=== PATIENT | male | born 1990 | race American Indian/Alaskan Native ===

== ENCOUNTER 2018-08-12 16:16 | Emergency (ER) | payer OTHER ==
--- NOTE | 2018-08-12 16:56 | Emergency Department Report ---
Blank Doc - Documentation Documentation: This is a 27-year-old male that presents with URI symptoms and sore throat. This initial assessment/diagnostic orders/clinical plan/treatment(s) is/are subject to change based on patient's health status, clinical progression and re- assessment by fellow clinical providers in the ED. Further treatment and workup at subsequent clinical providers discretion. Patient/guardians urged not to elope from the ED as their condition may be serious if not clinically assessed and managed. Initial orders include: 1- Patient sent to [facility] for further evaluation and treatment 2- CXR
[2018-08-12 16:58] VITALS: BP 133/86
--- NOTE | 2018-08-12 18:08 | XRay Report ---
PROCEDURE: XR CHEST ROUTINE 2V TECHNIQUE: PA and lateral chest radiographs were obtained. HISTORY: cough COMPARISONS: None. FINDINGS: Heart: Normal. Mediastinum/Vessels: Normal. Lungs/Pleural space: No infiltrate, effusion, or pneumothorax. Bony thorax: No acute osseous abnormality. IMPRESSION: No radiographic evidence of acute abnormality. This document is electronically signed by Beverly Zuniga MD., Aug 12 2018 06:06:13 PM ET
[2018-08-12] MEDS ORDERED: DELTASONE PO ONE (19:53)
[2018-08-12] MEDS ORDERED: LIDOCAINE VISCOUS 2% PO ONE (19:54)
[2018-08-12] MEDS ORDERED: TYLENOL PO ONE (19:54)
--- NOTE | 2018-08-12 20:35 | Emergency Department Report ---
- General Chief Complaint: Sore Throat Stated Complaint: SOAR THROAT/COUGH/MUCUS/PAIN Time Seen by Provider: 08/12/18 16:55 Source: patient Mode of arrival: Ambulatory Limitations: No Limitations - History of Present Illness Initial Comments: Patient is a 27-year-old [place] male with no past medical history presents to the ED with c/o acute onset persistent severe nasal and sinus congestion, frontal sinus pressure and headache, dry cough, pleuritic chest wall pain, severe sore throat with dysphagia, and diffuse body aches and pains with chills for the last 3 days. Patient states that in the last 12 hours his symptoms have worsened. Patient denies fever, nausea, vomiting, diarrhea, abdominal pain, chest pain, shortness of breath, dizziness or change in vision. MD Complaint: cough, sore throat, rhinorrhea, nasal congestion, sinus pain -: Sudden, days(s) (3) Severity: severe Severity scale (0 -10): 7 Quality: sharp Consistency: constant Improves With: nothing Worsens With: nothing Associated Symptoms: chills, myalgias, headache, rhinorrhea, nasal congestion, sore throat, cough. denies: nausea, vomiting, diarrhea, rash, confusion, epistaxis, hoarseness Treatments Prior to Arrival: "cold medicine" - Related Data Previous Rx's Medication Instructions Recorded Last Taken Type Ibuprofen [Motrin] 800 mg PO Q8HR PRN #20 tablet 08/12/18 Unknown Rx Lidocaine Viscous 2% 10 ml PO Q6H PRN #120 udc 08/12/18 Unknown Rx Ondansetron [Zofran Odt] 4 mg PO Q6H #15 tab.rapdis 08/12/18 Unknown Rx Penicillin V Potassium 500 mg PO Q6H #40 tablet 08/12/18 Unknown Rx methylPREDNISolone [Medrol] 4 mg PO DAILY #21 tab.ds.pk 08/12/18 Unknown Rx Allergies Allergy/AdvReac Type Severity Reaction Status Date / Time No Known Allergies Allergy Unverified 08/12/18 16:18 ED Review of Systems ROS: Stated complaint: SOAR THROAT/COUGH/MUCUS/PAIN Other details as noted in HPI Comment: All other systems reviewed and negative Constitutional: no symptoms reported, see HPI, chills, malaise. denies: diaphoresis, fever, weakness Eyes: as per HPI. denies: eye pain, eye discharge, vision change ENT: as per HPI, throat pain, congestion. denies: ear pain, dental pain, hearing loss, epistaxis Respiratory: no symptoms reported, see HPI, cough. denies: shortness of breath, SOB with exertion, wheezing Cardiovascular: as per HPI. denies: chest pain, palpitations, dyspnea on exertion, syncope Endocrine: no symptoms reported, see HPI. denies: excessive sweating, flushing, increased thirst, increased urine Gastrointestinal: as per HPI. denies: abdominal pain, nausea, vomiting, diarrhea, hematochezia Genitourinary: as per HPI. denies: urgency, dysuria, hematuria, testicular pain, testicular mass Musculoskeletal: as per HPI, arthralgia, myalgia. denies: back pain Skin: as per HPI. denies: rash, lesions, change in hair/nails Neurological: as per HPI, headache. denies: weakness, numbness, paresthesias, abnormal gait Psychiatric: as per HPI Hematological/Lymphatic: as per HPI ED Past Medical Hx - Past Medical History Previous Medical History?: No - Surgical History Past Surgical History?: No - Social History Smoking Status: Current Every Day Smoker Substance Use Type: None - Medications Home Medications: Home Medications Medication Instructions Recorded Confirmed Last Taken Type Ibuprofen [Motrin] 800 mg PO Q8HR PRN #20 tablet 08/12/18 Unknown Rx Lidocaine Viscous 2% 10 ml PO Q6H PRN #120 udc 08/12/18 Unknown Rx Ondansetron [Zofran Odt] 4 mg PO Q6H #15 tab.rapdis 08/12/18 Unknown Rx Penicillin V Potassium 500 mg PO Q6H #40 tablet 08/12/18 Unknown Rx methylPREDNISolone [Medrol] 4 mg PO DAILY #21 tab.ds.pk 08/12/18 Unknown Rx ED Physical Exam - General Limitations: No Limitations General appearance: alert, in no apparent distress - Head Head exam: Present: atraumatic, normal inspection - Eye Eye exam: Present: normal appearance, PERRL, EOMI. Absent: periorbital swelling, periorbital tenderness Pupils: Present: normal accommodation - ENT ENT exam: Present: mucous membranes moist, TM's normal bilaterally, normal external ear exam, other (Gross congestion in the nasal passages, erythematous oropharynx) - Neck Neck exam: Present: normal inspection, lymphadenopathy. Absent: tenderness, meningismus - Respiratory Respiratory exam: Present: normal lung sounds bilaterally. Absent: respiratory distress, wheezes, rales, chest wall tenderness, accessory muscle use, decreased breath sounds - Cardiovascular Cardiovascular Exam: Present: regular rate, normal rhythm, normal heart sounds - GI/Abdominal GI/Abdominal exam: Present: soft, normal bowel sounds. Absent: tenderness, hyperactive bowel sounds, hypoactive bowel sounds - Rectal Rectal exam: Present: deferred - Extremities Exam Extremities exam: Present: normal inspection, full ROM, normal capillary refill - Back Exam Back exam: Present: normal inspection, full ROM. Absent: tenderness, CVA tenderness (L), paraspinal tenderness, vertebral tenderness - Neurological Exam Neurological exam: Present: alert, oriented X3, CN II-XII intact, normal gait, reflexes normal - Psychiatric Psychiatric exam: Present: normal affect. Absent: normal mood, depressed, anxious, flat affect - Skin Skin exam: Present: warm, dry, intact, normal color, rash ED Course Vital Signs 08/12/18 16:56 Temperature 100.2 F H Pulse Rate 99 H Respiratory 20 Rate Blood Pressure 133/86 O2 Sat by Pulse 100 Oximetry - Reevaluation(s) Reevaluation #1: 08/12/18 20:38 Patient is alert and oriented 3 and is not in distress, but slightly febrile with temperature 100.2F in triage. Patient was treated for pain in the 80 and started on medications in the ED. On reevaluation, the patient's pain is well controlled, and fever has resolved. Patient discharged on medications and advised to follow up with his primary care physician in 7-10 days for reevaluation or return to the ED immediately if symptoms get worse. ED Medical Decision Making - Radiology Data Radiology results: report reviewed, image reviewed No acute cardiopulmonary process in the chest x-ray - Medical Decision Making Patient is alert and oriented 3 and is not in any distress. Patient was treated for fever and pain in the ED and on reevaluation, the patient's pain and fever resolved with treatment. The patient discharged home on medications and advised follow up with his primary care physician in 7-10 days for reevaluation or return to the ED immediately if symptoms get worse. Chest x-ray shows no acute cardiopulmonary abnormalities. - Differential Diagnosis acute frontal sinusitis, acute pharyngitis, acute bronchitis, fever Critical care attestation.: If time is entered above; I have spent that time in minutes in the direct care of this critically ill patient, excluding procedure time. ED Disposition Clinical Impression: Fever and chills, Acute upper respiratory infection Acute pharyngitis Qualifiers: Pharyngitis/tonsillitis etiology: other specified organisms Qualified Code(s): J02.8 - Acute pharyngitis due to other specified organisms Acute bronchitis Qualifiers: Bronchitis organism: unspecified organism Qualified Code(s): J20.9 - Acute bronchitis, unspecified Disposition: - TO HOME OR SELFCARE Is pt being admited?: No Does the pt Need Aspirin: No Condition: Stable Instructions: Acute Bronchitis (ED), Pharyngitis (ED), Upper Respiratory Infection (ED) Additional Instructions: Take medications with food, drink plenty of fluids and follow up with your primary care physician in 7-10 days for reevaluation. Return to the ED immediately if symptoms get worse. Prescriptions: Lidocaine Viscous 2% 10 ml PO Q6H PRN #120 udc PRN Reason: Pain , Severe (7-10) methylPREDNISolone [Medrol] 4 mg PO DAILY #21 tab.ds.pk Ibuprofen [Motrin] 800 mg PO Q8HR PRN #20 tablet PRN Reason: Pain , Severe (7-10) Penicillin V Potassium 500 mg PO Q6H #40 tablet Ondansetron [Zofran Odt] 4 mg PO Q6H #15 tab.rapdis Referrals: ROSMERY CORREAFEDORAODELL MD RJ [Primary Care Provider] - 3-5 Days Time of Disposition: 20:47 Print Language: [place]
== END 2018-08-12 21:05 | disposition home or self-care (01) ==
LOC: ED 16:16
DX: J06.9 Acute upper respiratory infection, unspecified (principal); J02.9 Acute pharyngitis, unspecified; J20.9 Acute bronchitis, unspecified; F17.200 Nicotine dependence, unspecified, uncomplicated
CPT/HCPCS: 71046; 99283; J7512